=== PATIENT | male | born 1990 | race African-American/Black ===

== ENCOUNTER 2017-03-05 16:12 | Emergency (ER) | payer SELFPAY ==
[~2017-03-05] VITALS: Ht 180.3 cm; Wt 79.4 kg
[2017-03-05 16:44] VITALS: BP 137/69
[2017-03-05] MEDS ORDERED: NAPR500T8 PO (17:01)
[2017-03-05] MEDS ORDERED: CYCL10TA2 PO (17:01)
--- NOTE | 2017-03-05 17:01 | PHYS DOC ---
Past Medical History Past Medical History: No Pertinent History Past Surgical History: No Surgical History Alcohol Use: None Drug Use: None Adult General Chief Complaint Chief Complaint: Neck Pain HPI HPI Patient is a 27 year old male who presents with mild right lateral neck pain that began this morning when he woke up. Patient denies any trauma. He states the pain is worse on turning to the right. Patient denies the pain radiating to bilateral upper extremities. Review of Systems Review of Systems Constitutional: Denies fever or chills [] Eyes: Denies change in visual acuity, redness, or eye pain [] HENT: Denies nasal congestion or sore throat [] Respiratory: Denies cough or shortness of breath [] Cardiovascular: No additional information not addressed in HPI [] GI: Denies abdominal pain, nausea, vomiting, bloody stools or diarrhea [] : Denies dysuria or hematuria [] Musculoskeletal: Right lateral neck pain Integument: Denies rash or skin lesions [] Neurologic: Denies headache, focal weakness or sensory changes Allergies Allergies Allergies Coded Allergies Type Severity Reaction Last Updated Verified Penicillins Allergy Intermediate 03/05/17 Yes Physical Exam Physical Exam Constitutional: Well developed, well nourished, no acute distress, non-toxic appearance. [] HENT: Normocephalic, atraumatic, bilateral external ears normal, oropharynx moist, no oral exudates, nose normal. [] Eyes: PERRLA, EOMI, conjunctiva normal, no discharge. [] Neck: Normal range of motion, no tenderness, pain elicited of the right lateral neck on range of motion towards the right side of the neck, supple, no stridor. [] Cardiovascular:Heart rate regular rhythm, no murmur [] Lungs & Thorax: Bilateral breath sounds clear to auscultation [] Abdomen: Bowel sounds normal, soft, no tenderness, no masses, no pulsatile masses. [] Skin: Warm, dry, no erythema, no rash. [] Back: No tenderness, no CVA tenderness. [] Extremities: No tenderness, no cyanosis, no clubbing, ROM intact, no edema. [] Neurologic: Alert and oriented X 3, normal motor function, normal sensory function, no focal deficits noted. [] Psychologic: Affect normal, judgement normal, mood normal. [] Current Patient Data Vital Signs Vital Signs Date Time Temp Pulse Resp B/P (MAP) Pulse Ox O2 Delivery O2 Flow Rate FiO2 03/05/17 16:44 98.3 77 18 96 Room Air 98.3 EKG EKG [] Radiology/Procedures Radiology/Procedures [] Course & Med Decision Making Course & Med Decision Making Pertinent Labs and Imaging studies reviewed. (See chart for details) Patient is in the ED with neck pain consistent with torticollis. Discharged with naproxen and Flexeril. Warm compresses recommended. Follow-up with her PCP in 1-2 weeks. Zack Disclaimer Dragon Disclaimer This electronic medical record was generated, in whole or in part, using a voice recognition dictation system. Departure Departure Impression: Primary Impression: Torticollis, acute Disposition: HOME, SELF-CARE Condition: STABLE Patient Instructions: Torticollis, Acute Additional Instructions: You were seen with neck pain consistent of torticollis. Apply heat to the area. Take the prescribed medicine since as ordered. Do not drive or operate machinery on the cyclobenzaprine. Follow-up with the primary care doctor from the list provided in 1-2 weeks. Scripts Cyclobenzaprine Hcl (CYCLOBENZAPRINE HCL) 10 Mg Tablet 1 TAB PO TID, #30 TAB Prov: EMILY MARTINI APRN 03/05/17 Naproxen (NAPROXEN) 500 Mg Tablet. 1 TAB PO BID, #60 TAB 2 Refills Prov: EMILY MARTINI APRN 03/05/17 EMILY MARTINI APRN Mar 05, 2017 17:01
== END 2017-03-05 17:08 | disposition home or self-care (01) ==
LOC: ER 16:12
DX: M43.6 Torticollis (principal); Z88.0 Allergy status to penicillin
CPT/HCPCS: 99283

== ENCOUNTER 2017-10-03 20:26 | Emergency (ER) | payer OTHER ==
[2017-10-03] MEDS: predniSONE 10 MG TABLET PO (20:53)
[2017-10-03] MEDS: IPRATRPIUM/ALBUTEROL 0.5/2.5MG 3 ML NEBU. NEB (20:53)
== END 2017-10-03 21:19 | disposition home or self-care (01) ==
LOC: ER 20:26
DX: J20.9 Acute bronchitis, unspecified (principal); Z87.891 Personal history of nicotine dependence; Z88.0 Allergy status to penicillin
CPT/HCPCS: 99283; 99283-25; J7512; J7620